=== PATIENT | male | born 1980 | race African-American/Black ===

== ENCOUNTER 2022-02-13 18:06 | Emergency (ER) | payer OTHER, SELFPAY ==
[2022-02-13 18:23] VITALS: BP 131/94; PULSE 133; O2SAT 100
--- NOTE | 2022-02-13 18:24 | ED.ANXIETY ---
HPI - Anxiety General Chief Complaint: Anxiety <JOHNSON Zendejas Last Filed: 02/13/22 21:10> Stated Complaint: anxiety <JOHNSON Zendejas Last Filed: 02/13/22 21:10> Time Seen by Provider: 02/13/22 18:24 <JOHNSON Zendejas Last Filed: 02/13/22 21:10> Source: patient and EMS <JOHNSON Zendejas Last Filed: 02/13/22 21:10> Mode of arrival: EMS <JOHNSON Zendejas Last Filed: 02/13/22 21:10> History of Present Illness HPI narrative: 41-year-old male with no significant past medical history presenting to the ED via EMS complaining of adverse reaction of feeling panicky, SOB, chest tightness, & lightheadedness 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 Admits the edibles were 5mg each. Denies other illicit drugs or EtOH. Admits feels mildly improved at present still not at baseline with difficulty gathering his thoughts. Denies headache, abdominal pain, nausea/vomiting, fall <JOHNSON Zendejas Last Filed: 02/13/22 21:10> MD complaint: anxiety and shortness of breath <JOHNSON Zendejas Last Filed: 02/13/22 21:10> Onset (ago): hour(s) <JOHNSON Zendejas Last Filed: 02/13/22 21:10> Related Data Allergies/Adverse Reactions: Allergies Allergy/AdvReac Type Severity Reaction Status Date / Time No Known Allergies Allergy Unverified 05/31/20 17:04 <JOHNSON Zendejas Last Filed: 02/13/22 21:10> Review of Systems Review of Systems: Constitutional: No Fever, No Chills, No Fatigue, No Malaise ENT/Mouth: No Ear Pain, No Nasal Congestion, No sore throat, No Rhinorrhea, No Swallowing Difficulty Eyes: No Eye Pain, No Swelling, No Redness, No Vision Changes Cardiovascular: + Chest tightness, + SOB, No Dyspnea on Exertion, No Orthopnea, No Edema, No Palpitations Respiratory: No Cough, No Sputum, No Dyspnea Gastrointestinal: No Nausea, No Vomiting, No Diarrhea, No Constipation, No Abdominal pain Genitourinary: No Dysuria, No Urinary Frequency, No Hematuria, No Flank Pain, No Urinary Flow Changes, No Hesitancy Musculoskeletal: No joint pain, No Myalgias, No Joint Swelling Skin: No Skin Lesions, No rash Neuro: No Weakness, No Numbness, No Paresthesias, No Loss of Consciousness, +lightheaded, No Headache Psych: + Anxiety/Panic <JOHNSON Zendejas Last Filed: 02/13/22 21:10> Yes all other systems are reviewed and are negative <JOHNSON Zendejas Last Filed: 02/13/22 21:10> [facility] Past Medical History Attestation statement: The following information was validated with the patient. <JOHNSON Zendejas Last Filed: 02/13/22 21:10> Social History Social History: Social History Advance Directives: No Advance Directives Information Provided: No <JOHNSON Zendejas Last Filed: 02/13/22 21:10> Physical Exam Vital Signs: Vital Signs: Last Vital Signs Temp 98.3 F 02/13/22 18:44 Pulse 103 H 02/13/22 18:44 Resp 18 02/13/22 18:44 BP 154/74 H 02/13/22 18:44 Pulse Ox 98 02/13/22 18:44 BMI result Body Mass Index 24.4 <JOHNSON Zendejas Last Filed: 02/13/22 21:10> Const: General: cooperative, no acute distress, alert, awake and anxious <JOHNSON Zendejas Last Filed: 02/13/22 21:10> Orientation/consciousness: patient oriented x3 <JOHNSON Zendejas Last Filed: 02/13/22 21:10> Limitations: no limitations <JOHNSON Zendejas Last Filed: 02/13/22 21:10> HEENT: Head: Yes normal to inspection and Yes atraumatic <JOHNSON Zendejas Last Filed: 02/13/22 21:10> Ears: hearing grossly normal bilaterally <JOHNSON Zendejas Last Filed: 02/13/22 21:10> General nose exam: Normal external nose present <Olivia Vazquez PA - Last Filed: 02/13/22 21:10> Face and sinus: Yes normal facial exam <Olivia Vazquez PA - Last Filed: 02/13/22 21:10> Eyes: General: appearance normal, both eyes and all related structures <Olivia Vazquez PA - Last Filed: 02/13/22 21:10> Pupils: Equal, round and reactive pupils present <Olivia Vazquez PA - Last Filed: 02/13/22 21:10> EOM: EOMs intact bilaterally <Olivia Vazquez PA - Last Filed: 02/13/22 21:10> Neck: Neck: Yes normal visual inspection and Yes no meningeal signs <Olivia Vazquez PA - Last Filed: 02/13/22 21:10> Resp: Effort & Inspection: normal respiratory effort and no respiratory distress <Olivia Vazquez PA - Last Filed: 02/13/22 21:10> Auscultation: clear to auscultation bilaterally <Olivia Vazquez PA - Last Filed: 02/13/22 21:10> Cardio: Rate: regular rate and tachycardic <Olivia Vazquez PA - Last Filed: 02/13/22 21:10> Heart sounds: S1 normal heart sound present and S2 normal heart sound present <Olivia Vazquez PA - Last Filed: 02/13/22 21:10> GI: Inspection: Yes normal to inspection <Olivia Vazquez PA - Last Filed: 02/13/22 21:10> Palpation (GI): Soft to palpation, nontender, no guarding and not rigid <Olivia Vazquez PA - Last Filed: 02/13/22 21:10> Skin: Rashes: no rashes <Olivia Vazquez PA - Last Filed: 02/13/22 21:10> Wounds: no wounds <Olivia Vazquez PA - Last Filed: 02/13/22 21:10> Neuro: General: patient oriented x3, tone normal, moves all extremities and no meningeal signs <Olivia Vazquez PA - Last Filed: 02/13/22 21:10> Cranial nerves: Yes Equal, round and reactive pupils present <JOHNSON Zendejas Last Filed: 02/13/22 21:10> Extrem: General: Yes normal to inspection and Yes no pedal edema <JOHNSON Zendejas Last Filed: 02/13/22 21:10> Psych: Affect: Anxious affect present <JOHNSON Zendejas Last Filed: 02/13/22 21:10> Attitude: cooperative <JOHNSON Zendejas Last Filed: 02/13/22 21:10> Course Course Course Narrative: Patient resting comfortably during re-evaluations -2109--on re-evaluation patient lying on stretcher comfortably, reports mild symptomatic improvement. Feels safe for discharge home at this time. 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 On exam tachycardic likely from anxiety, lungs CTA, abdomen soft/nontender. Concern for panic/anxiety reaction vs drug reaction. Low concern for ACS/PE Plan: EKG, p.o. fluids, observe and reassess for clinical sobriety <JOHNSON Zendejas Last Filed: 02/13/22 21:10> Differential Diagnosis Differential diagnosis: Likely hyperventilation, panic disorder and acute anxiety <JOHNSON Zendejas Last Filed: 02/13/22 21:10> Medical Records Attestation: I reviewed the patient's medical records. <JOHNSON Zendejas Last Filed: 02/13/22 21:10> Lab Data Attestation: I reviewed the patient's lab results. <JOHNSON Zendejas Last Filed: 02/13/22 21:10> Labs: Lab Results 02/13/22 Range/Units 21:42 Urine Opiates Screen Not Detected (Not Detect) Urine Fentanyl Screen Not Detected (Not Detect) Ur Barbiturates Screen Not Detected (Not Detect) Ur Phencyclidine Scrn Not Detected (Not Detect) Ur Amphetamines Screen Not Detected (Not Detect) U Benzodiazepines Scrn Not Detected (Not Detect) Urine Cocaine Screen Not Detected (Not Detect) U Marijuana (THC) Screen POSITIVE H (Not Detect) <JOHNSON Zendejas - Last Filed: 02/13/22 21:10> ECG Data Attestation: I personally reviewed and interpreted this ECG as follows: <JOHNSON Zendejas - Last Filed: 02/13/22 21:10> ECG interpretation date: 02/13/22 <JOHNSON Zendejas - Last Filed: 02/13/22 21:10> ECG interpretation time: 18:25 <JOHNSON Zendejas - Last Filed: 02/13/22 21:10> Interpretation: EKG sinus tachycardia rate 104. IA interval 168. QTC 452. No STEMI/nonischemic <JOHNSON Zendejas - Last Filed: 02/13/22 21:10> Discharge Plan Discharge Clinical Impression: Adverse reaction to cannabis <JOHNSON Zendejas - Last Filed: 02/13/22 21:10> Patient Disposition: Home, Self-Care <JOHNSON Zendejas - Last Filed: 02/13/22 21:10> Instructions: Polysubstance Abuse (ED) <JOHNSON Zendejas - Last Filed: 02/13/22 21:10> Additional Instructions: Please avoid drug use Rest Stay hydrated If symptoms persist or worsen please return to the emergency or Call 911 <JOHNSON Zendejas - Last Filed: 02/13/22 21:10> Referrals: Physician,None [Primary Care Provider] - 1 week <JOHNSON Zendejas - Last Filed: 02/13/22 21:10> Interventions: ED Discharge Assessment Last Done: 02/13/22 22:21 <JOHNSON Zendejas - Last Filed: 02/13/22 21:10> Discharge Date/Time: 02/13/22 22:22 <JOHNSON Zendejas - Last Filed: 02/13/22 21:10>
--- NOTE | 2022-02-13 18:27 | ECG_ITS ---
Test Reason : TACHY Blood Pressure : / mmHG Vent. Rate : 104 BPM Atrial Rate : 104 BPM P-R Int : 168 ms QRS Dur : 108 ms QT Int : 344 ms P-R-T Axes : 033 035 007 degrees QTc Int : 452 ms Sinus tachycardia Otherwise normal ECG No previous ECGs available Referred By: Generic ED Physician Electronically Signed By:JULIANNA PIRES MD
[2022-02-13 18:44] VITALS: BP 154/74; PULSE 103; RESP 18; TEMP 36.8; O2SAT 98; BMI 24.4
[2022-02-13 22:06] LABS: Amphetamine Screen Urine Not Detected (Not Detect); Barbiturates, Urine Not Detected (Not Detect); Benzodiazepines Screen Urine Not Detected (Not Detect); Cannabinoid Screen Urine POSITIVE (Not Detect); Cocaine Screen Urine Not Detected (Not Detect); Fentanyl, urine Not Detected (Not Detect); Opiate Screen Urine Not Detected (Not Detect); Phencyclidine Screen Urine Not Detected (Not Detect)
== END 2022-02-13 22:22 | disposition home or self-care (01) ==
PROVIDERS: Physician Assistant; Emergency Provider Emergency Medicine
DX: T40.711A Poisoning by cannabis, accidental (unintentional), initial encounter (principal); F41.9 Anxiety disorder, unspecified; R06.02 Shortness of breath; R07.89 Other chest pain; Y92.9 Unspecified place or not applicable
CPT/HCPCS: 80307; 93005; 99282; 99283